=== PATIENT | female | born 1950 | race Caucasian/White ===

== ENCOUNTER 2018-08-16 15:34 | Inpatient (IN) | payer OTHER ==
[~2018-08-16] VITALS: Ht 160 cm; Wt 90.7 kg
[~2018-08-16 15:34] MED LIST: METFORM PO; [UNRECOGNIZED DRUG - OTHER] PO
[2018-08-24] MEDS ORDERED: METFORMIN HCL500 MG PO (08:50)
[2018-08-24] MEDS ORDERED: TOPROL XL50 M1 PO (08:51)
[2018-08-24] MEDS ORDERED: TRAM1TAB98 PO (08:52)
[2018-08-26] MEDS ORDERED: INTEGRA PLUS C1 EACH PO (06:28)
[2018-08-26] MEDS ORDERED: XARELTO10 MG PO (06:28)
[2018-08-26] MEDS ORDERED: OXYC1TAB9 PO (06:28)
== END 2018-08-26 12:17 | disposition home or self-care (01) | DRG 470 ==
LOC: SURH 08-23 07:00 → O/R 08-23 09:09 → SURG 08-23 09:09 → SURH 08-23 12:30 → SURG 08-23 17:35
PROVIDERS: ADMIT Orthopaedic Surgery Sports Medicine
PROC: 0T9B70Z Drainage of Bladder with Drainage Device, Via Natural or Artificial Opening (ICD-10-PCS; 2018-08-23)
PROC: 0SRC0J9 Replacement of Right Knee Joint with Synthetic Substitute, Cemented, Open Approach (ICD-10-PCS; principal; 2018-08-23 12:30)
DX: M17.11 Unilateral primary osteoarthritis, right knee (principal); E11.9 Type 2 diabetes mellitus without complications; Z79.4 Long term (current) use of insulin; I10 Essential (primary) hypertension

== ENCOUNTER 2018-10-25 10:46 | Day surgery (SDC) | payer OTHER ==
[~2018-10-25 10:46] MED LIST changes: +INTEGRA PLUS C1 EACH PO; +METFORMIN HCL500 MG PO; +OXYC1TAB9 PO; +TOPROL XL50 M1 PO; +TRAM1TAB98 PO; +XARELTO10 MG PO
[2018-10-25] MEDS ORDERED: OXYC1TAB9 PO (15:07)
[2018-10-25] MEDS ORDERED: DUI500 PO (15:07)
== END 2018-10-25 18:40 | disposition home or self-care (01) ==
LOC: CIR.AMB 10:46
DX: M24.562 Contracture, left knee (principal)